=== PATIENT | male | born 1985 | race Caucasian/White ===

== ENCOUNTER 2020-07-11 21:26 | Emergency (ER) | payer MEDICAID, SELFPAY ==
[2020-07-11] VITALS (17 sets, daily range): BP systolic 135–152; BP diastolic 100–109; PULSE 63–82; RESP 7–19; TEMP 36.3; O2SAT 74–100
--- NOTE | 2020-07-11 21:58 | ED.GENADULT ---
HPI - General Adult General Chief complaint: Unspecified Stated complaint: took xanax now tired Time Seen by Provider: 07/11/20 21:34 History of Present Illness HPI narrative: Patient is a 35-year-old male who was found slumped over outside by bystanders. EMS called. Patient reports taking Xanax and attempt to get high. Upon evaluation in the room patient is asleep with pinpoint pupils. He has snoring. When sternal rub he just says the words 1911. Related Data Allergies Allergy/AdvReac Type Severity Reaction Status Date / Time cyclobenzaprine Allergy Intermediate LEG PAIN Verified 02/26/18 06:33 quetiapine Allergy Mild RASH Verified 02/26/18 06:33 Review of Systems Review of Systems: ROS unobtainable: Yes unobtainable due to medical condition PMFSH Past Medical History Medical History (Updated 07/12/20 @ 04:37 by Walter Morales MD) Hypertension Surgical History Surgical History (Updated 07/11/20 @ 22:00 by Walter Morales MD) H/O thumb surgery Social History Social History (Updated 07/11/20 @ 22:00 by Walter Morales MD) Smoking status: Current every day smoker Alcohol intake: current Substance use type: marijuana, amphetamines, opiates and prescription drug Exam Narrative: Exam Narrative: GENERAL: Intoxicated-appearing, well-nourished, and in no acute distress. HEAD: Normocephalic, atraumatic. EYES: Pinpoint pupils, EOMI. ENT: Mucous membranes moist. CHEST: Clear to auscultation. No respiratory distress. HEART: Regular rate and rhythm. Normal peripheral pulses. ABDOMEN: Soft, nontender, nondistended. EXTREMITIES: Normal range of motion. No edema. NEURO: Sleeping, when sternal rub is applied patient opens his eyes and is able to speak. Moves all extremities. Course Course Emergency Course: After prolonged observation and hydration patient is now awake alert and oriented x3. He ambulates with steady gait. He has no complaints of pain or injury. He is aware of how he ended up in the ER. Patient received Narcan as he was sleeping and sats dropped. Narcan had no effect on him so is likely he was just struggling with his benzodiazepine usage. Vital Signs Vital signs: Vital Signs Temperature 97.4 F L 07/11/20 21:24 Pulse Rate 82 07/11/20 21:24 Respiratory Rate 16 07/11/20 21:24 Blood Pressure 152/100 H 07/11/20 21:24 Pulse Oximetry 100 07/11/20 21:24 Temperature 97.4 F L 07/11/20 21:24 Pulse Rate 71 07/12/20 04:30 Respiratory Rate 19 07/12/20 04:30 Blood Pressure 131/74 07/12/20 04:30 Pulse Oximetry 100 07/12/20 04:30 Medical Decision Making Vital Signs Vital Signs: Vital Signs Temperature 97.4 F L 07/11/20 21:24 Pulse Rate 82 07/11/20 21:24 Respiratory Rate 16 07/11/20 21:24 Blood Pressure 152/100 H 07/11/20 21:24 Pulse Oximetry 100 07/11/20 21:24 Temperature 97.4 F L 07/11/20 21:24 Pulse Rate 71 07/12/20 04:30 Respiratory Rate 19 07/12/20 04:30 Blood Pressure 131/74 07/12/20 04:30 Pulse Oximetry 100 07/12/20 04:30 Lab Data Result diagrams: 07/11/20 23:03 07/11/20 23:03 Labs: Lab Results 07/11/20 07/11/20 07/11/20 Range/Units 23:03 23:03 23:03 WBC 6.0 (4.5-10.0) K/mm3 RBC 4.67 (4.6-6.20) M/mm3 Hgb 14.7 (14.0-18.0) g/dL Hct 42.2 (42.0-52.0) % MCV 90.4 (80-100) fl MCH 31.5 (26-34) pg MCHC 34.8 (32-36) g/dl RDW 11.9 (11.5-14.5) % Plt Count 200 (150-375) k/mm3 MPV 9.3 (7.4-10.4) fl Immature Gran % (Auto) 0.2 (0-0.5) % Neut % (Auto) 54.5 (45.5-73.1) % Lymph % (Auto) 28.4 (18.3-44.2) % Payne % (Auto) 14.9 H (2.6-8.5) % Eos % (Auto) 1.7 (0-4.4) % Baso % (Auto) 0.3 (0.2-1.2) % Lymph # (Auto) 1.69 (0.9-3.2) K/mm3 Payne # (Auto) 0.9 H (0.1-0.6) K/mm3 Eos # (Auto) 0.1 (0-0.3) K/mm3 Baso # (Auto) 0.0 (0.0-0.1) K/mm3 Abs Immat Gran (auto) 0.01 (0.00-0.031) K/mm3 Absolu
--- NOTE | 2020-07-11 22:00 | PC.NURSE ---
checked on the pt, awakened to verbal stimuli. pt has equal chest rise and fall noted when resting
--- NOTE | 2020-07-11 22:30 | PC.NURSE ---
noted to have equal chest rise and fall when checking on pt, no distress noted, will awaken to verbal stimuli
[2020-07-11] MEDS: ONDANSETRON INJ 4 MG/2 ML VIAL (22:32)
[2020-07-11] MEDS: NALOXONE HCL INJ 2 MG/2 ML AMP 1 MG IV PUSH (22:32)
--- NOTE | 2020-07-11 23:00 | PC.NURSE ---
Assumed care of pt. report from FLACA Umana
[2020-07-11] MEDS: SODIUM CHLORIDE 0.9% IV 1,000 ML 999 ML IV CONT (23:04)
[2020-07-11 23:06] LABS: Basophils Percent Auto 0.3 % (0.2-1.2); Eosinophils Absolute Auto 0.1 K/mm3 (0-0.3); Eosinophils Percent Auto 1.7 % (0-4.4); Hematocrit 42.2 % (42.0-52.0); Hemoglobin 14.7 g/dL (14.0-18.0); Immature Granulocyte Absolute 0.01 K/mm3 (0.00-0.031); Immature Granulocyte Percent A 0.2 % (0-0.5); Lymphocytes Absolute Auto 1.69 K/mm3 (0.9-3.2); Lymphocytes Percent Auto 28.4 % (18.3-44.2); Mean Corpuscular HGB Conc 34.8 g/dl (32-36); Mean Corpuscular Hemoglobin 31.5 pg (26-34); Mean Corpuscular Volume 90.4 fl (80-100); Mean Platelet Volume 9.3 fl (7.4-10.4); Monocytes Absolute Auto 0.9 K/mm3 (0.1-0.6); Monocytes Percent Auto 14.9 % (2.6-8.5); Neutrophils Absolute Auto 3.3 K/mm3 (1.3-6.7); Neutrophils Percent Auto 54.5 % (45.5-73.1); Platelet Count Result 200 k/mm3 (150-375); Red Blood Count 4.67 M/mm3 (4.6-6.20); Red Cell Distribution Width 11.9 % (11.5-14.5)
[2020-07-11 23:19] LABS: Anion Gap 4 mmol/L (8-16); Blood Urea Nitrogen 12 mg/dL (9-20); Calcium 8.6 mg/dL (8.4-10.2); Carbon Dioxide 31 mmol/L (22-30); Chloride 102 mmol/L (98-107); Estimated CRCL calculation 102 ml/min; Estimated Glomerular Filt Rate > 60; Ethanol < 10 mg/dL (<10); Glucose 87 mg/dL (75-110); Potassium 3.9 mmol/L (3.4-5.0); Sodium 137 mmol/L (137-145)
--- NOTE | 2020-07-11 23:44 | PC.NURSE ---
Pt. unable to void
[2020-07-12] VITALS (30 sets, daily range): BP systolic 118–148; BP diastolic 74–94; PULSE 66–90; RESP 12–19; O2SAT 91–100
--- NOTE | 2020-07-12 | PC.NURSE ---
pt. attempted to void. unsuccessful
[2020-07-12] MEDS: SODIUM CHLORIDE 0.9% IV 1,000 ML 999 ML IV CONT (00:23)
[2020-07-12 00:31] LABS: Add Urine Microscopic? YES; Appearance Urine Clear (Clear); Bacteria Urine Trace /hpf; Bilirubin Urine Negative (Negative); Blood Urine Negative (Negative); Color Urine Yellow (Yellow); Glucose Urine UA Negative (Negative); Ketones Urine Negative (Negative); Leukocyte Esterase Ur Negative LEU/UL (Negative); Mucus Urine Heavy /lpf; Nitrate Urine Negative (Negative); Protein Urine 1+ mg/dL (Negative); Specific Grav Ur 1.026 (1.001-1.035); Squamous Epithelial Cell Urine Rare /hpf (Few); WBC Urine 0-3 /hpf
--- NOTE | 2020-07-12 00:49 | PC.NURSE ---
Pt. placed on 1 L o2
[2020-07-12 00:53] LABS: Barbiturate Screen Urine Negative (Negative); Benzodiazepines Screen Urine Positive (Negative)
[2020-07-12 00:54] LABS: Cannabinoid Screen Urine Negative (Negative); Cocaine Screen Urine Negative (Negative); Methadone Screen Urine Negative (Negative); Opiate Screen Urine Positive (Negative); Phencyclidine Screen Urine Negative (Negative)
[2020-07-12 01:07] LABS: Amphetamine Screen Urine Positive (Negative)
[2020-07-12] MEDS: NALOXONE HCL INJ 2 MG/2 ML AMP IV PUSH (01:18)
== END 2020-07-12 04:40 | disposition home or self-care (01) ==
PROVIDERS: Emergency Provider Emergency Medicine
DX: T42.4X1A Poisoning by benzodiazepines, accidental (unintentional), initial encounter (principal); I10 Essential (primary) hypertension
CPT/HCPCS: 36415; 80048; 80307; 81001; 85025; 96361; 96374; 96375; 99284; J2310; J2405; J7030

== ENCOUNTER 2020-09-10 16:24 | Emergency (ER) | payer MEDICAID, SELFPAY ==
[2020-09-10 16:36] VITALS: BP 141/99; PULSE 71; RESP 16; TEMP 36.1; O2SAT 100
--- NOTE | 2020-09-10 16:49 | ED.URI ---
HPI - URI/Sore Throat General Chief Complaint: Upper Respiratory Infection Stated Complaint: Sore Throat Time Seen by Provider: 09/10/20 16:50 Source: patient Mode of arrival: ambulatory Limitations: no limitations History of Present Illness HPI Narrative: Faizan Jordan is a 35 yo male with no PMH and no vaccination who developed a cough 3 days ago and today work up, sit minimalwith swollem epiglottis. States that he feels like he could choke when he lays down. Related Data Allergies Allergy/AdvReac Type Severity Reaction Status Date / Time cyclobenzaprine Allergy Intermediate LEG PAIN Verified 02/26/18 06:33 Penicillins Allergy Intermediate Rash Verified 09/10/20 16:43 quetiapine Allergy Mild RASH Verified 02/26/18 06:33 Review of Systems Review of Systems: Narrative: CONSTITUTIONAL: Denies fever, chills, sweats. EYES: Denies visual changes, redness, discharge. ENT: Denies rhinorrhea, congestion, sore throat, otalgia. CARDIOVASCULAR: Denies chest pain, palpitations, edema. RESPIRATORY: Denies dyspnea, wheezing, has cough-feels like he is going to choke when he lays down GASTROINTESTINAL: Denies abdominal pain, nausea, vomiting, diarrhea. GENITOURINARY: Denies dysuria, hematuria, abnormal discharge SKIN: Denies rash or itching. NEUROLOGIC: Denies numbness, or focal weakness. PSYCHIATRIC: Denies anxiety or depression. PMFSH Past Medical History Medical History HTN (hypertension) Hypertension Surgical History Surgical History H/O thumb surgery Social History Social History Smoking status: Current every day smoker Alcohol intake: current Substance use type: marijuana, amphetamines, opiates and prescription drug Gender identity (if verbalized by the patient): Male Comments At time of signature, I agree with nursing past medical, surgical, social and family history. There is no relevant family history pertinent to the presenting complaint. BP elevated, follow up with pcp, may be due to his current illness Exam Narrative: Exam Narrative: GENERAL: This is a well-nourished, well-developed patient, in mild distress. HEAD: normocephalic, atraumatic. EYES: Sclera clear/white. Vision is grossly intact. EARS: External ears normal, auditory canals clear and without drainage, TMs normal without perforation. Hearing grossly intact. NOSE: External nose normal without nasal discharge, nares with redness, has rhinorrhea. THROAT: Mucous membranes moist, posterior pharynx erythema with an edematous epiglottis. Airway not obstructed NECK: Neck supple, tender CARDIOVASCULAR: Regular rate and rhythm without murmurs, gallops, or rubs. RESPIRATORY: Clear to auscultation. Breath sounds equal bilaterally. No wheezes, rales, or rhonchi. No increased respiratory rate GASTROINTESTINAL: Abdomen soft, non-tender, SKIN: warm, intact with no suspicious lesions or rash, good texture and turgor. NEURO: awake, alert, and oriented to person, place and time. There were no obvious focal neurologic abnormalities. Steady gait EXTREMITIES: Normal range of motion. BACK: Nontender without deformity Course Course Emergency Course: Patient is a 35 old male who comes to [facility] with complaints of cough x3 days and today awakening with a sore throat and feel like he is going to choke when he is laying down Is negative, Covid test is negative, Covid PCR sent Patient started on steroids, cough medication, antibiotics Pt torest and hydrate, quarantine until receive PCR results Reasons to go to ER discussed Vital Signs Vital signs: Vital Signs Temperature 96.9 F L 09/10/20 16:36 Pulse Rate 71 09/10/20 16:36 Respiratory Rate 16 09/10/20 16:36 Blood Pressure 141/99 H 09/10/20 16:36 Pulse Oximetry 100 09/10/20 16:36 Temperature 96.9 F L 09/10/20 16:36 Pulse Ra
[2020-09-10] MEDS: methylPREDNISolone SOD SUCC 125 MG VIAL IM (17:16)
[2020-09-12 14:53] LABS: SARS-CoV-2 RNA PCR Negative
== END 2020-09-10 17:32 | disposition home or self-care (01) ==
PROVIDERS: Emergency Provider Nurse Practitioner
DX: J05.10 Acute epiglottitis without obstruction (principal); Z20.822 Contact with and (suspected) exposure to COVID-19; F17.200 Nicotine dependence, unspecified, uncomplicated; I10 Essential (primary) hypertension
CPT/HCPCS: 87081; 87426; 87880; 96372; 99213; C9803; G0463; J2930; U0003; U0005

== ENCOUNTER 2020-10-02 11:32 | Emergency (ER) | payer MEDICAID, SELFPAY ==
[2020-10-02 11:43] VITALS: BP 170/114; PULSE 77; RESP 14; TEMP 36.3; O2SAT 99
--- NOTE | 2020-10-02 12:30 | ED.SKABFB ---
HPI - Skin/Abscess/Foreign Bdy General Chief complaint: Wound/Laceration Stated complaint: possible abscess to lower lip Time Seen by Provider: 10/02/20 12:08 Source: patient Mode of arrival: ambulatory Limitations: no limitations History of Present Illness HPI narrative: Patient is a 35-year-old male complaining of swelling of the left side of his lip after he popped the pimple. Patient states that the pain is an 8 out of 10. Denies any dental pain. Denies any tongue or oropharyngeal swelling. Denies any fever. Denies dysphagia. Related Data Allergies Allergy/AdvReac Type Severity Reaction Status Date / Time cyclobenzaprine Allergy Intermediate LEG PAIN Verified 02/26/18 06:33 Penicillins Allergy Intermediate Rash Verified 09/10/20 16:43 quetiapine Allergy Mild RASH Verified 02/26/18 06:33 Review of Systems Review of Systems: All systems reviewed & are unremarkable except as noted in HPI and below PMFSH Past Medical History Medical History HTN (hypertension) Hypertension Surgical History Surgical History H/O thumb surgery Social History Social History Smoking status: Current every day smoker Alcohol intake: current Substance use type: marijuana, amphetamines, opiates and prescription drug Gender identity (if verbalized by the patient): Male Exam Const: General: no acute distress and alert Orientation/consciousness: patient oriented x3 HENMT: Ears: external ears normal Mouth: Yes moist mucous membranes Other: Erythematous, swollen, tender left lower lip. Clear oropharyngeal area, negative for any swelling. Patent airway. Eyes: Conjunctivae: conjunctivae normal Neck: Neck: normal visual inspection Resp: Effort & Inspection: normal respiratory effort Course Vital Signs Vital signs: Vital Signs Temperature 36.3 C L 10/02/20 11:43 Pulse Rate 77 10/02/20 11:43 Respiratory Rate 14 10/02/20 11:43 Blood Pressure 170/114 H 10/02/20 11:43 Pulse Oximetry 99 10/02/20 11:43 Temperature 36.3 C L 10/02/20 11:43 Pulse Rate 77 10/02/20 11:43 Respiratory Rate 14 10/02/20 11:43 Blood Pressure 170/114 H 10/02/20 11:43 Pulse Oximetry 99 10/02/20 11:43 MDM - Skin/Abscess/Foreign Bdy Differential Diagnosis Differential diagnosis: Likely abscess of skin or subcutaneous tissue, insect bites, impetigo and contact dermatitis Discharge Plan Discharge Clinical Impression: Cellulitis and abscess of face Patient Disposition: Home, Self-Care Condition: Stable Instructions: Antibiotic Form, Cellulitis (ED) Additional Instructions: Follow-up with your family doctor in 1 to 2 days Prescriptions: New doxycycline hyclate 100 mg capsule 100 mg PO BID 7 Days Qty: 14 RF: 0 No Action prednisone 20 mg tablet 40 mg PO DAILY 5 Days Qty: 10 RF: 0 levofloxacin 750 mg tablet 750 mg PO DAILY Qty: 7 RF: 0 codeine-guaifenesin 10-100 mg/5 mL liquid 5 ml PO Q6H PRN (Reason: cough) Qty: 118 RF: 0 cephalexin 500 mg capsule 500 mg PO QID 10 Days Qty: 40 RF: 0 Follow-up/Referrals: PHYSICIAN,TRUCK SPOTTER [Primary Care Provider] - 10/04/20 Time of Disposition: 12:35
[2020-10-02] MEDS: HYDROcodone/acetaminophen (*CRX) 5-325 MG TABLET 1 TAB PO (12:45)
[2020-10-02] MEDS: IBUPROFEN 600 MG TABLET PO (12:46)
[2020-10-02 12:54] VITALS: BP 168/104; PULSE 72; RESP 14; O2SAT 99
== END 2020-10-02 12:55 | disposition home or self-care (01) ==
PROVIDERS: Emergency Provider Emergency Medicine
DX: L03.211 Cellulitis of face (principal); L02.01 Cutaneous abscess of face; I10 Essential (primary) hypertension; F17.200 Nicotine dependence, unspecified, uncomplicated
CPT/HCPCS: 99283; A9270